=== PATIENT | female | born 1990 | race Caucasian/White ===

== ENCOUNTER 2016-10-22 09:30 | Emergency (ER) | payer OTHER ==
[2016-10-22 10:18] VITALS: BP 148/105
--- NOTE | 2016-10-22 13:27 | UC ---
Abdominal Pain Female HPI - HPI Summary HPI Summary: PATIENT PRESENTS TO WITH REQUEST FOR TEST AND FEELINGS OF TIGHT ABDOMEN, NAUSEA, HEARTBURN AND WEAKNESS FOR 1 WEEK. SHE THINKS SHE MAY BE DESPITE 2 NEGATIVE PREG TESTS AT HOME (PER RN). UA COMPLETED WITH AND NEGATIVE RESULTS. PATIENT MADE AWARE AND BECOMES VERY UPSET. PROVIDER STATED SHE COULD RX MEDICATION FOR GERD SYMPTOMS WELL ANTI- EMETICS. PATIENT STATES SHE HAS ZOFRAN AT HOME AND SHE DOES NOT WISH TO BE STARTED ON ANOTHER MEDICATION. SHE PREFERS AT THIS TIME TO GO TO [facility] FOR FURTHER EVALUATION TO REQUEST A BLOOD TEST FOR SHE THINKS SHE IS , BUT IT MAY NOT BE SHOWING UP IN URINE. SHE STOPPED HER BC 2 MONTHS AGO AND PROVIDER EXPLAINED IT WILL TAKE SOME TIME FOR HER BODY TO REGULATE THROUGH HORMONES, AND THAT LIKELY THE REASON FOR NO PERIOD IN 6 WEEKS IS D/T HER BODY REGULATING THROUGH THE NEW HORMONES. SHE REMAINS STEADFAST THAT SHE WOULD LIKE TO GO TO THE [facility] AND PROVIDER IS OK WITH HER FOR DISCHARGE. - History of Current Complaint Chief Complaint: UCGU Stated Complaint: PERSONAL Time Seen by Provider: 10/22/16 10:15 Hx Obtained From: Patient Hx Last Menstrual Period: 09/03/16 ?: No Onset/Duration: Gradual Onset Timing: Constant Severity Initially: Mild Severity Currently: Mild Pain Intensity: 0 Pain Scale Used: 0-10 Numeric Location: Diffuse Radiates: No Character: Cramping Aggravating Factor(s): Nothing Alleviating Factor(s): Nothing Associated Signs and Symptoms: Positive: Nausea - Risk Factors Ectopic Risk Factor: Negative Ovarian Torsion Risk Factor: Reproductive Age Allergies/Adverse Reactions: Allergies Allergy/AdvReac Type Severity Reaction Status Date / Time Atorvastatin [From Lipitor] Allergy Hives Verified 10/22/16 10:04 Lactose Intolerance (GI) Allergy Vomiting Verified 10/22/16 10:04 Strawberries, tomatoes Allergy Hives Uncoded 10/22/16 10:04 Home Medications: Home Medications Another Blood Pressure Medication - Unknown Name 10/22/16 [History] Metoprolol Tartrate TAB* [Lopressor TAB*] 25 mg PO BID 10/22/16 [History Confirmed 10/22/16] PMH/Surg Hx/FS Hx/Imm Hx Previously Healthy: Yes - DIABETES, HTN Endocrine History Of: Reports: Diabetes - PO med Cardiovascular History Of: Reports: Hypertension Denies: Pacemaker/ICD - Surgical History Surgical History: Yes Surgery Procedure, Year, and Place: ARTHROSCOPY left KNEE 2005, right SHOULDER SURGERY - Family History Known Family History: Positive: Hypertension - Social History Occupation: Employed Full-time Lives: With Family Alcohol Use: None Substance Use Type: None Smoking Status (MU): Never Smoked Tobacco - Immunization History Most Recent Influenza Vaccination: Fall 2014 Review of Systems Constitutional: Fatigue Skin: Negative Eyes: Negative ENT: Negative Respiratory: Negative Cardiovascular: Negative Gastrointestinal: Abdominal Pain, Other - NAUSEA Motor: Negative Neurovascular: Negative Neurological: Negative Psychological: Negative All Other Systems Reviewed And Are Negative: Yes Physical Exam Triage Information Reviewed: Yes Appearance: Well-Appearing, No Pain Distress, Well-Nourished Vital Signs: Initial Vital Signs Temp 97.9 F 10/22/16 09:59 Pulse 65 10/22/16 09:59 Resp 16 10/22/16 09:59 BP 148/105 10/22/16 09:59 Pulse Ox 100 10/22/16 09:59 Vital Signs Reviewed: Yes Eye Exam: Normal Eyes: Positive: Conjunctiva Clear Neck exam: Normal Neck: Positive: Supple, No Lymphadenopathy Respiratory Exam: Normal Respiratory: Positive: Chest non-tender Cardiovascular Exam: Normal Abdominal Exam: Normal Musculoskeletal Exam: Normal Musculoskeletal: Positive: Strength Intact Neurological Exam: Normal Psychological: Positive: Normal Response To Family Skin Exam: Normal Abd Pain Female Course/Dx - Course Course Of Treatment: SEE HPI. PATIENT IS UPSET AND PREFERS TO GO TO [facility] FOR BLOOD TEST. PROVIDER EXPLAINED THEY COULD TREAT HER OTHER SYMPTOMS AND WOULD WANT TO PROVIDE A BETTER PHYSICAL EXAM, BUT PATIENT IS REFUSING AND PREFERS TO LEAVE. SHE DID NOT LEAVE [place], BUT REFUSED CARE. - Differential Dx/Diagnosis Differential Diagnosis: Irritable Bowel Syndrome, Pelvic Inflammatory Disease, , Urinary Tract Infection Provider Diagnoses: NAUSEA, GERD SYMPTOMS Discharge - Discharge Plan Condition: Stable Disposition: HOME Referrals: Non Staff,Doctor [Primary Care Provider] - Additional Instructions: Please follow up today for more tests or further evaluation.
== END 2016-10-22 11:28 | disposition home or self-care (01) ==
LOC: UCCORT 09:30
DX: R11.0 Nausea (principal); K21.9 Gastro-esophageal reflux disease without esophagitis; Z32.02 Encounter for pregnancy test, result negative; E11.9 Type 2 diabetes mellitus without complications; Z79.84 Long term (current) use of oral hypoglycemic drugs; I10 Essential (primary) hypertension
CPT/HCPCS: 81003; 84702; 87086; 99211; G0463

== ENCOUNTER 2017-02-25 13:25 | Emergency (ER) | payer OTHER ==
[2017-02-25 13:47] VITALS: BP 129/84
--- NOTE | 2017-02-25 14:14 | UC ---
Skin Complaint HPI - HPI Summary HPI Summary: Pt states she is allergic to tomatos and strawberries. pt states she ate lasagna 2 night ago. Pt states last evening she developed hives to her face, primarily at hair line. Pt states she applied Benadryl cream which helped. pt states today has itching all over her face although rash is improved. Pt denies difficulty breathing. No intra-oral edema. no difficulty swallowing. Pt's medication reviewed at this visit. - History of Current Complaint Chief Complaint: UCSkin Time Seen by Provider: 02/25/17 13:52 Stated Complaint: SKIN COMPLAINT FACE Hx Obtained From: Patient Hx Last Menstrual Period: 01/30/17 Onset/Duration: Sudden Onset Skin Exposure Onset/Duration: Days Ago Onset Severity: Mild Current Severity: Mild Pain Intensity: 0 Pain Scale Used: 0-10 Numeric - Allergy/Home Medications Allergies/Adverse Reactions: Allergies Allergy/AdvReac Type Severity Reaction Status Date / Time Atorvastatin [From Lipitor] Allergy Hives Verified 02/25/17 13:47 Lactose Intolerance (GI) Allergy Vomiting Verified 02/25/17 13:47 Strawberries, tomatoes Allergy Hives Uncoded 02/25/17 13:47 Home Medications: Home Medications Candesartan Cilexetil-Hydrochl [Candesartan Cilexetil/Hyd] 1 tab PO DAILY [History Confirmed 02/25/17] Review of Systems Constitutional: Negative Skin: Rash Respiratory: Negative All Other Systems Reviewed And Are Negative: Yes PMH/Surg Hx/FS Hx/Imm Hx Previously Healthy: Yes - Surgical History Surgical History: Yes Surgery Procedure, Year, and Place: ARTHROSCOPY left KNEE 2004, right SHOULDER SURGERY - Family History Known Family History: Positive: Hypertension - Social History Occupation: Employed Full-time Lives: With Family Alcohol Use: Rare Substance Use Type: None Smoking Status (MU): Never Smoked Tobacco - Immunization History Most Recent Influenza Vaccination: no Physical Exam Triage Information Reviewed: Yes Appearance: Well-Appearing, No Pain Distress, Well-Nourished Vital Signs: Initial Vital Signs Temp 98.2 F 02/25/17 13:41 Pulse 84 02/25/17 13:41 Resp 14 02/25/17 13:41 BP 129/84 02/25/17 13:41 Pulse Ox 99 02/25/17 13:41 Vital Signs Reviewed: Yes Eye Exam: Normal Eyes: Positive: Conjunctiva Clear ENT Exam: Normal ENT: Positive: Normal ENT inspection, Hearing grossly normal, Pharynx normal, Nasal drainage, TMs normal Dental Exam: Normal Neck exam: Normal Neck: Positive: Supple, Nontender, No Lymphadenopathy Respiratory Exam: Normal Respiratory: Positive: Chest non-tender, Lungs clear, Normal breath sounds, No respiratory distress, No accessory muscle use Cardiovascular Exam: Normal Cardiovascular: Positive: RRR, No Murmur, Pulses Normal Abdominal Exam: Normal Abdomen Description: Positive: Nontender, No Organomegaly Bowel Sounds: Positive: Present Musculoskeletal Exam: Normal Neurological Exam: Normal Neurological: Positive: Alert Psychological Exam: Normal Skin Exam: Normal Skin: Positive: Other - pt with mild diffuse facial edema mild erythema with scattered, blotchy hives. Course/Dx - Course Course Of Treatment: Pt presents to the ED with patchy hives on face with mild edema after eating tomato sauce which cases pt to have reaction. Pt ate yesterday. Pt without intraoral edema or any other symptoms. d/w pt to avoid heat, nsaid. prednisone. benadryl prn. pt comfortable and in agreement with plan - Diagnoses Provider Diagnoses: allergic reaction Discharge - Discharge Plan Condition: Stable Disposition: HOME Prescriptions: predniSONE TAB* [Deltasone TAB*] 50 mg PO DAILY #5 tab Patient Education Materials: General Allergic Reaction (ED) Forms: *Work Release Referrals: Non Staff,Doctor [Primary Care Provider] - Additional Instructions: -Take prednisone once daily directly as prescribed until gone -Okay to take Benadryl every 8 hours. This may cause drowsiness. Do NOT drive, operate machinery or drink alcohol while taking this medication - Avoid getting over heated - hot tubs, hot shower, exercise for 2-3 days - Avoid NSAIDs (Motrin, Advil, Naprosyn, Aleve) for 2-3 days - Okay to apply cool compresses to your wounds - Call your doctor or return with questions or concerns
== END 2017-02-25 14:16 | disposition home or self-care (01) ==
LOC: UCCORT 13:25
DX: L98.9 Disorder of the skin and subcutaneous tissue, unspecified (principal); Z88.8 Allergy status to other drugs, medicaments and biological substances; Z91.011 Allergy to milk products; Z91.018 Allergy to other foods
CPT/HCPCS: 99212; G0463

== ENCOUNTER 2017-10-29 09:18 | Emergency (ER) | payer OTHER ==
[2017-10-29 09:49] VITALS: BP 142/89
--- NOTE | 2017-10-29 10:07 | UC ---
Abdominal Pain Female HPI - HPI Summary HPI Summary: LUQ abdominal pain / right flank pain x 3 days pain is 6/10 , no radiation of the pain pain is worse with movement and improves with rest no fever, no chills, no n/v/d/c , no urinary sx - History of Current Complaint Chief Complaint: UCAbdominalPain Stated Complaint: LEFT SIDE PAIN X4 DAYS Time Seen by Provider: 10/29/17 09:58 Hx Obtained From: Patient Hx Last Menstrual Period: 10/01/17 Onset/Duration: Gradual Onset, Lasting Days - 3, Still Present Timing: Constant Severity Initially: Moderate Severity Currently: Moderate Pain Intensity: 8 Location: Discrete At: LUQ Radiates: No Character: Aching Aggravating Factor(s): Movement Alleviating Factor(s): Other: - rest Associated Signs and Symptoms: Negative: Diaphoresis, Fever, Cough, Chest Pain, Dizzy, Back Pain, Constipation, Blood in Stool, Urinary Symptoms, Decreased Appetite, Vaginal Bleeding, Vaginal Discharge, Nausea, Vomiting, Diarrhea Allergies/Adverse Reactions: Allergies Allergy/AdvReac Type Severity Reaction Status Date / Time atorvastatin Allergy Hives Verified 10/29/17 09:55 lactose Allergy Vomiting Verified 10/29/17 09:55 Strawberries, tomatoes Allergy Hives Uncoded 02/25/17 13:47 Home Medications: Home Medications Ibuprofen TAB* [Motrin TAB* 800 MG] 800 mg PO DAILY PRN 10/29/17 [History Confirmed 10/29/17] Verapamil HCl [Verapamil HCl ER] 100 mg PO BEDTIME 10/29/17 [History Confirmed 10/29/17] PMH/Surg Hx/FS Hx/Imm Hx Cardiovascular History: Hypertension - Surgical History Surgical History: Yes Surgery Procedure, Year, and Place: ARTHROSCOPY left KNEE 2004, right SHOULDER SURGERY - Family History Known Family History: Positive: Hypertension - Social History Alcohol Use: Rare Substance Use Type: None Smoking Status (MU): Never Smoked Tobacco - Immunization History Most Recent Influenza Vaccination: no Review of Systems Constitutional: Negative Skin: Negative Eyes: Negative ENT: Negative Cardiovascular: Palpitations Gastrointestinal: Abdominal Pain Genitourinary: Negative Is Patient Immunocompromised?: No All Other Systems Reviewed And Are Negative: Yes Physical Exam Triage Information Reviewed: Yes Appearance: Well-Appearing, No Pain Distress, Obese Vital Signs: Initial Vital Signs Temp 99.2 F 10/29/17 09:38 Pulse 79 05/29/18 09:38 Resp 18 10/29/17 09:38 BP 142/89 10/29/17 09:38 Pulse Ox 100 10/29/17 09:38 Vital Signs Reviewed: Yes Eyes: Positive: Conjunctiva Clear ENT: Positive: Normal ENT inspection, Hearing grossly normal, Pharynx normal Neck: Positive: Supple, Nontender, No Lymphadenopathy Respiratory: Positive: Chest non-tender, Lungs clear, Normal breath sounds Cardiovascular: Positive: RRR, No Murmur, Pulses Normal Abdomen Description: Positive: Nontender, Soft, Other: - pain with twisting and turning her trunk tenderness left intercostal lower ribs. Negative: CVA Tenderness (R), CVA Tenderness (L), Distended, Guarding Bowel Sounds: Positive: Present Abd Pain Female Course/Dx - Differential Dx/Diagnosis Provider Diagnoses: intercostal muscle strain Discharge - Sign-Out/Discharge Documenting (check all that apply): Discharge/Admit/Transfer - Discharge Plan Condition: Stable Disposition: HOME Prescriptions: Naproxen [Naprosyn 500 mg tab] 500 mg PO BID #20 tablet Referrals: Non Staff,Doctor [Primary Care Provider] - - Billing Disposition and Condition Condition: STABLE Disposition: HOME
== END 2017-10-29 10:27 | disposition home or self-care (01) ==
LOC: UCCORT 09:18
DX: S29.011A Strain of muscle and tendon of front wall of thorax, initial encounter (principal); I10 Essential (primary) hypertension; E73.9 Lactose intolerance, unspecified; Z91.018 Allergy to other foods; Z82.49 Family history of ischemic heart disease and other diseases of the circulatory system; X58.XXXA Exposure to other specified factors, initial encounter; Y92.9 Unspecified place or not applicable
CPT/HCPCS: 81003; 99212; G0463

== ENCOUNTER 2018-03-03 19:39 | Emergency (ER) | payer OTHER ==
[2018-03-03] MEDS ORDERED: Benzonatate CAP* 100 MG PO ONE (21:42)
--- NOTE | 2018-03-03 21:48 | UC ---
Respiratory Complaint HPI - HPI Summary HPI Summary: 28 year old female presents with 4 day history of a productive cough for green sputum. Denies fever, chills, nasal congestion, runny nose, ear pain or drainage, sore throat, chest pain, shortness of breath, abdominal pain, nausea, or vomiting. - History of Current Complaint Chief Complaint: UCRespiratory Stated Complaint: COUGH Time Seen by Provider: 03/03/18 20:53 Hx Obtained From: Patient Hx Last Menstrual Period: 02/04/18 Onset/Duration: Gradual Onset, Lasting Days - 4 Pain Intensity: 0 Character: Cough: Productive Aggravating Factors: Nothing Alleviating Factors: Nothing Associated Signs And Symptoms: Negative: Dyspnea, Fever, Chills, Pleuritic Chest Pain, Wheezing, Hemoptysis, URI, Nasal Congestion - Allergies/Home Medications Allergies/Adverse Reactions: Allergies Allergy/AdvReac Type Severity Reaction Status Date / Time atorvastatin Allergy Hives Verified 03/03/18 21:06 lactose Allergy Vomiting Verified 03/03/18 21:06 Strawberries, tomatoes Allergy Hives Uncoded 03/03/18 21:06 Home Medications: Home Medications Dm/Acetaminophen/Doxylamine [Night Time Multi-Symptom] 1 cap PO PRN 03/03/18 [ History] Dm/Pseudoephed/Acetaminophen [Day-Time Multi-Symptom Co] 1 cap PO PRN 03/03/18 [ History] PMH/Surg Hx/FS Hx/Imm Hx Previously Healthy: Yes Cardiovascular History: Hypertension - Surgical History Surgical History: Yes Surgery Procedure, Year, and Place: ARTHROSCOPY left KNEE 2004, right SHOULDER SURGERY - Family History Known Family History: Positive: Hypertension - Social History Occupation: Employed Full-time Lives: With Family Alcohol Use: Rare Substance Use Type: None Smoking Status (MU): Never Smoked Tobacco - Immunization History Most Recent Influenza Vaccination: no Review of Systems Constitutional: Negative Skin: Negative Eyes: Negative ENT: Negative Respiratory: Cough Cardiovascular: Negative Gastrointestinal: Negative Is Patient Immunocompromised?: No All Other Systems Reviewed And Are Negative: Yes Physical Exam Triage Information Reviewed: Yes Appearance: Well-Appearing, No Pain Distress, Well-Nourished Vital Signs: Initial Vital Signs Temp 98.3 F 03/03/18 21:09 Pulse 86 03/03/18 21:09 Resp 18 03/03/18 21:09 BP 151/105 03/03/18 21:09 Pulse Ox 98 03/03/18 21:09 Vital Signs Reviewed: Yes Eyes: Positive: Conjunctiva Clear. Negative: Discharge ENT: Positive: Hearing grossly normal, Pharyngeal erythema - Mild, TMs normal, Uvula midline. Negative: Nasal congestion, Nasal drainage, Tonsillar swelling, Tonsillar exudate, Sinus tenderness Neck: Positive: Supple, Nontender, No Lymphadenopathy Respiratory: Positive: Lungs clear, Normal breath sounds, No respiratory distress Cardiovascular: Positive: RRR, No Murmur Neurological: Positive: Alert Skin Exam: Normal Diagnostic Evaluation - Laboratory O2 Sat by Pulse Oximetry: 98 Respiratory Course/Dx - Course Course Of Treatment: 28 year old female with 4 day history of productive cough. Exam unremarkable except for her elevated blood pressure. Has history of HTN but not taking her medication due to side effects. Her cough is likely an acute viral bronchitis. Recommend symptomatic treatment using Tessalon Perles PRN. Avoidance of OTC cold medicines d/t HTN. Restart her verapamil and follow up with PCP. Verbalizes understanding and agrees with POC. - Differential Dx/Diagnosis Differential Diagnosis/HQI/PQRI: Bronchitis, Lower Resp Infection Provider Diagnoses: acute bronchitis Discharge - Sign-Out/Discharge Documenting (check all that apply): Patient Departure All imaging exams completed and their final reports reviewed: No Studies - Discharge Plan Condition: Stable Disposition: HOME Prescriptions: Benzonatate CAP* [Tessalon 100 MG CAP*] 100 mg PO TID PRN #30 cap PRN Reason: Cough Patient Education Materials: Acute Bronchitis (ED) Forms: *Work Release Referrals: Non Staff,Doctor [Primary Care Provider] - Additional Instructions: Your symptoms are suggestive of an acute bronchitis. Bronchitis is typically caused by a viral infection. Viral infections do not respond to antibiotics and typically run their course over about 7-10 days although the cough with bronchitis can linger for a few weeks. Be sure to drink plenty of fluids to stay well hydrated. You may use [id number]-hal-[id number] Mucinex to help thin and removal secretions. Use Tessalon Perles 1 cap every 8 hours as needed for cough. Your blood pressure was elevated in the clinic tonight. I would recommend restarting your blood pressure medication and following up with your primary care provider to discuss alternatives if you're not tolerating your current medication well. I would also recommend avoiding [id number] cold medicines as these can elevate her blood pressure as well. Seek immediate medical attention if you develop fever greater than 100.5, have chest pain, worsening shortness of breath, or any worsening of symptoms. - Billing Disposition and Condition Condition: STABLE Disposition: Home
[2018-03-03 21:59] VITALS: BP 136/100
== END 2018-03-03 21:53 | disposition home or self-care (01) ==
LOC: UCCORT 19:39
DX: J20.9 Acute bronchitis, unspecified (principal); Z88.8 Allergy status to other drugs, medicaments and biological substances; I10 Essential (primary) hypertension
CPT/HCPCS: 99212; A9270-GY; G0463

== ENCOUNTER 2018-08-22 10:21 | Emergency (ER) | payer OTHER ==
--- OUTSIDE RECORDS SUMMARY | 2018-08-22 10:51 | XMS REPORT | Continuity of Care Document ---
:1990 External Reference #:[id number] Author Name Janet Messer Care Team Providers Name Role Phone Jevon Schulte MD Primary Care Physician Unavailable Payers Date Identification Numbers Payment Provider Subscriber Policy Number: [id number] [facility] Raman Carlisle PayID: [id number] [address] [place] [address] Advance Directives Description No Information Available Problems Date Description Provider Status Onset: 03/13/2018 Shoulder joint unstable Arik Downs MD Active Onset: 03/13/2018 Injury of shoulder region Arik Downs MD Active Onset: 03/13/2018 Strain of muscle(s) and tendon(s) of the Arik Downs MD Active rotator cuff of right shoulder, subsequent encounter Family History Description No Information Available Social History Type Date Description Comments Sex Unknown Lives With Spouse Occupation Currently Working ETOH Use Rarely consumes alcohol Tobacco Use Start: Unknown Patient has never smoked Smoking Status Reviewed: 08/08/18 Patient has never smoked Exercise Type/Frequency Exercises sporadically Allergies, Adverse Reactions, Alerts Date Description Reaction Status Severity Comments 03/13/2018 Lipitor Active hives Medications Medication Date Status Form Strength Qnty SIG Indications Ordering Provider Verapamil HCL Active Tablets 80mg 1 tab by Unknown 000 mouth twice a day Keflex Hx Capsules 500mg 12caps take 1 Arik 018 - tab by MD Himanshu mouth 018 four times a day x 3 days Percocet Hx Tablets 5-325mg 10tabs 1 tabs by Arik 018 - mouth MD Himanshu every 12 018 hours as needed pain Immunizations Description No Information Available Vital Signs Date Vital Result Comment 08/08/2018 8:07am Height 67 inches 5'7" Weight 247.00 lb Heart Rate 59 /min BP Systolic 172 mmHg BP Diastolic 92 mmHg Body Temperature 98.2 F Pain Level 8 BMI (Body Mass Index) 38.7 kg/m2 07/10/2018 1:41pm Height 67 inches 5'7" Weight 247.00 lb Heart Rate 72 /min BP Systolic Sitting 134 mmHg BP Diastolic Sitting 84 mmHg Respiratory Rate 16 /min Pain Level 8 BMI (Body Mass Index) 38.7 kg/m2 06/05/2018 1:18pm Height 67 inches 5'7" Weight 247.00 lb BP Systolic 118 mmHg BP Diastolic 70 mmHg Respiratory Rate 18 /min Pain Level 0 BMI (Body Mass Index) 38.7 kg/m2 04/29/2018 8:05am Height 67 inches 5'7" Weight 247.00 lb BP Systolic 126 mmHg BP Diastolic 72 mmHg Respiratory Rate 18 /min Body Temperature 98.3 F Pain Level 4 BMI (Body Mass Index) 38.7 kg/m2 04/10/2018 1:10pm Height 67 inches 5'7" Weight 247.50 lb Heart Rate 84 /min BP Systolic 130 mmHg BP Diastolic 82 mmHg Respiratory Rate 18 /min Pain Level 8 BMI (Body Mass Index) 38.8 kg/m2 03/13/2018 2:23pm Height 67 inches 5'7" Weight 246.00 lb Heart Rate 72 /min BP Systolic 140 mmHg BP Diastolic 90 mmHg Body Temperature 98.4 F Pain Level 8 BMI (Body Mass Index) 38.5 kg/m2 Results Test Date Facility Test Result H/L Range Note Laboratory test 04/16/2018 [facility] Point of Care 150 mg/dL High 70-[address] [place] [address] [phone] 1 Computer Systems Software Engineer: [id number] Procedures Date Code Description Status 04/16/2018 28247 Arthroscopy Shoulder,W/Rotator Cuff Repair Completed 04/16/2018 08441 Arthroscopy Shoulder,W/Rotator Cuff Repair Completed 04/16/2018 08685 Arthroscopy,Shoulder Decompression Of Subacromial Space Completed W/Acromio 04/16/2018 76622 Arthroscopy,Shoulder Decompression Of Subacromial Space Completed W/Acromio 04/16/2018 38002 Tenodesis Biceps Long Tendon Completed 04/16/2018 07897 Tenodesis Biceps Long Tendon Completed Encounters Type Date Location Provider Dx Diagnosis Office Visit 03/13/2018 [facility] Arik Downs MD M25.311 Other [facility] instability, right shoulder S46.011D Strain of musc/tend the rotator cuff of right shoulder, subs S46.101A Unsp injury of musc/fasc/tend long hd bicep, right arm, init Plan of Treatment Future Appointment(s):09/23/2018 1:15 pm - Arik Downs MD at [facility]
[2018-08-22 11:17] VITALS: BP 157/104
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
== END 2018-08-22 13:11 | disposition home or self-care (01) ==
LOC: UCCORT 10:21
DX: S40.011A Contusion of right shoulder, initial encounter (principal); E11.9 Type 2 diabetes mellitus without complications; I10 Essential (primary) hypertension; Z91.018 Allergy to other foods; Z91.011 Allergy to milk products; Z88.8 Allergy status to other drugs, medicaments and biological substances; V89.2XXA Person injured in unspecified motor-vehicle accident, traffic, initial encounter; Y92.9 Unspecified place or not applicable
CPT/HCPCS: 99211; G0463

== ENCOUNTER 2018-12-10 09:38 | Emergency (ER) | payer OTHER ==
--- OUTSIDE RECORDS SUMMARY | 2018-12-10 09:53 | XMS REPORT | Continuity of Care Document ---
:1990 External Reference #:[id number] Author Name Janet Messer Care Team Providers Name Role Phone Jevon Schulte MD Primary Care Physician Unavailable Payers Date Identification Numbers Payment Provider Subscriber Policy Number: [id number] [facility] Raman [place] PayID: [id number] [facility] [id number] [place] [address] Effective: 2018 Policy Number: [id number] [employer] Raman [place] Onset: 2018 Group Number: [id number] JOSE PayID: [id number] [place] [address] Problems Active Problems Provider Date Shoulder joint unstable Arik Downs MD Onset: 03/13/2018 Injury of shoulder region Arik Downs MD Onset: 03/13/2018 Strain of muscle(s) and tendon(s) of the rotator Arik Downs MD Onset: 04/2018 cuff of right shoulder, subsequent encounter Social History Type Date Description Comments Sex Unknown Lives With Spouse Occupation Currently Working ETOH Use Rarely consumes alcohol Tobacco Use Start: Unknown Patient has never smoked Smoking Status Reviewed: 11/25/18 Patient has never smoked Exercise Type/Frequency Exercises sporadically Allergies, Adverse Reactions, Alerts Active Allergies Reaction Severity Comments Date Lipitor hives 03/13/2018 Medications Active Medications SIG Qnty Indications Ordering Provider Date Verapamil HCL 1 tab by mouth Unknown 80mg Tablets twice a day History Medications Medrol take as directed 21units S46.011D Arik Downs, 08/26/2018 - 4mg TBPK by packaging 09/22/2018 Keflex take 1 tab by 12caps Arik Downs, 04/16/2018 - 500mg mouth four times a MD 04/19/2018 Capsules day x 3 days Percocet 1 tabs by mouth 10tabs Arik Downs, 04/16/2018 - every 12 hours as 04/26/2018 5-325mg Tablets needed pain Medications Administered in Office Medication SIG Qnty Indications Ordering Provider Date Triamcinolone (Kenalog) Arik Downs MD 08/08/2018 Injection Vital Signs Date Vital Result Comment 11/25/2018 12:57pm Height 67 inches 5'7" Weight 248.00 lb BP Systolic 132 mmHg BP Diastolic 86 mmHg Respiratory Rate 18 /min Pain Level 2 BMI (Body Mass Index) 38.8 kg/m2 09/23/2018 1:09pm Height 67 inches 5'7" Weight 248.00 lb Heart Rate 97 /min BP Systolic 128 mmHg BP Diastolic 88 mmHg Body Temperature 98.4 F Pain Level 3 BMI (Body Mass Index) 38.8 kg/m2 08/26/2018 12:57pm Height 67 inches 5'7" Weight 247.00 lb BP Systolic 128 mmHg BP Diastolic 84 mmHg Respiratory Rate 18 /min Pain Level 8 BMI (Body Mass Index) 38.7 kg/m2 08/08/2018 8:07am Height 67 inches 5'7" Weight [...] Result H/L Range Note Laboratory test 04/16/2018 [facility] Point of Care 150 mg/dL High 70-[address] [place] [address] [phone] 1 [place] Can Worker: [id number] Procedures Date Code Description Status 08/08/2018 42357 Inject/Drain Joint/Bursa Major W/O US Completed 04/16/2018 41982 Arthroscopy Shoulder,W/Rotator Cuff Repair Completed 04/16/2018 78668 Arthroscopy Shoulder,W/Rotator Cuff Repair Completed 04/16/2018 17826 Arthroscopy,Shoulder Decompression Of Subacromial Space Completed W/Acromio 04/16/2018 84790 Arthroscopy,Shoulder Decompression Of Subacromial Space Completed W/Acromio 04/16/2018 96401 Tenodesis Biceps Long Tendon Completed 04/16/2018 89657 Tenodesis Biceps Long Tendon Completed Encounters Type Date Location Provider Dx Diagnosis Office Visit 09/23/2018 Orthopedic Arik Downs MD S46.101D Unsp injury of 1:15p [facility] musc/fasc/tend long hd bicep, right arm, subs M25.311 Other instability, right shoulder S46.011D Strain of martina/tend the rotator cuff of right shoulder, subs Office Visit 08/26/2018 1:00p Orthopedic Arik Downs S46.011A Strain of [facility] MD mack/[facility] rotator cuff of right shoulder, init S46.101D Unsp injury of martina/fasc/tend long hd bicep, right arm, subs M25.311 Other instability, right shoulder S46.011D Strain of martina/tend the rotator cuff of right shoulder, subs Office Visit 08/08/2018 Gaurav Downs, S46.101D Unsp injury of 8:15a [facility] mack/fasc/tend long [facility] hd bicep, right arm, subs M25.311 Other instability, right shoulder S46.011D Strain of musc/tend the rotator cuff of right shoulder, subs Office Visit 03/13/2018 2:00p Orthopedic Arik Downs, M25.311 Other instability, [facility] right shoulder [facility] S46.011D Strain of musc/tend the rotator cuff of right shoulder, subs S46.101A Unsp injury of musc/fasc/tend long hd bicep, right arm, init Plan of Treatment 11/25/2018 - Arik Downs, MDS46.101D Unspecified injury of muscle, fascia and tendon of long headM25.311 Other instability, right lbssqjtkH04.011D Strain of muscle(s) and tendon(s) of the rotator cuff of rigFollow up:Follow up: As needed
[2018-12-10 10:01] VITALS: BP 152/111
[2018-12-10] MEDS ORDERED: Albuterol 2.5 MG/3 ML NEB.SOL* (0.083%) INH ONE (10:17)
--- NOTE | 2018-12-10 10:17 | UC ---
UC General HPI - HPI Summary HPI Summary: pt is c/o a 3-4 day hx head congestion, ear pressure, sore throat and cough. no fever, cp or asthma. hx htn, no meds yet today. taking oct cold medications with no relief. - History of Current Complaint Chief Complaint: UCGeneralIllness Stated Complaint: COUGH,CONGESTION,BILAT EAR CONCERN Time Seen by Provider: 12/10/18 10:10 Hx Obtained From: Patient Hx Last Menstrual Period: October Onset/Duration: Gradual Onset Timing: Constant Pain Intensity: 7 Associated Signs & Symptoms: Positive: Headache - with cough. Negative: Chest Pain, SOB - Allergy/Home Medications Allergies/Adverse Reactions: Allergies Allergy/AdvReac Type Severity Reaction Status Date / Time atorvastatin Allergy Hives Verified 12/10/18 10:02 lactose Allergy Vomiting Verified 12/10/18 10:02 Strawberries, tomatoes Allergy Hives Uncoded 12/10/18 10:02 PMH/Surg Hx/FS Hx/Imm Hx Cardiovascular History: Hypertension - Surgical History Surgical History: Yes Surgery Procedure, Year, and Place: ARTHROSCOPY left KNEE 2004, right SHOULDER SURGERY x2- last one 04/2018 - Family History Known Family History: Positive: Hypertension - Social History Alcohol Use: Rare Substance Use Type: Marijuana Substance Use Comment - Amount & Last Used: occasionally Smoking Status (MU): Never Smoked Tobacco Have You Smoked in the Last Year: No - Immunization History Most Recent Influenza Vaccination: no Review of Systems All Other Systems Reviewed And Are Negative: Yes Constitutional: Negative: Fever, Chills ENT: Positive: Sore Throat, Ear Ache, Sinus Congestion Respiratory: Positive: Cough. Negative: Shortness Of Breath Cardiovascular: Negative: Palpitations, Chest Pain Neurological: Positive: Headache - with cough Physical Exam Triage Information Reviewed: Yes Appearance: Well-Appearing Vital Signs: Initial Vital Signs Temp 98.3 F 12/10/18 09:54 Pulse 85 12/10/18 09:54 Resp 18 12/10/18 09:54 BP 152/111 12/10/18 09:54 Pulse Ox 98 12/10/18 09:54 Vital Signs Reviewed: Yes Eyes: Positive: Conjunctiva Clear ENT: Positive: Pharyngeal erythema - mild, Nasal congestion, TMs normal. Negative: Nasal drainage Neck: Positive: Supple, Nontender, No Lymphadenopathy Respiratory: Positive: Lungs clear, Decreased breath sounds - slight, Other: - frequent npc.. Negative: Crackles, Rhonchi, Wheezing Cardiovascular: Positive: RRR, No Murmur Musculoskeletal: Positive: ROM Intact Neurological: Positive: Alert Psychological: Positive: Age Appropriate Behavior Skin Exam: Normal Diagnostics - Laboratory Lab Results: rapid strep=negative Re-Evaluation - Re-Evaluation First Eval Change: Improved - better aeration and cough improved Course/Dx - Diagnoses Provider Diagnosis: URI (upper respiratory infection), Bronchitis Discharge - Sign-Out/Discharge Documenting (check all that apply): Patient Departure All imaging exams completed and their final reports reviewed: No Studies - Discharge Plan Condition: Stable Disposition: HOME Prescriptions: Albuterol HFA INHALER* [Ventolin HFA Inhaler*] 2 puff INH Q6H #1 mdi prednisoLONE [Prednisolone] 30 mg PO DAILY 5 Days #50 ml Patient Education Materials: Upper Respiratory Infection (DC), Acute Bronchitis (ED) Forms: *Work Release Referrals: Eris ROSARIO,Jevon Navarro [Primary Care Provider] - 7 Days - Billing Disposition and Condition Condition: STABLE Disposition: Home
== END 2018-12-10 10:55 | disposition home or self-care (01) ==
LOC: UCCORT 09:38
DX: J06.9 Acute upper respiratory infection, unspecified (principal); J40 Bronchitis, not specified as acute or chronic; I10 Essential (primary) hypertension; Z91.011 Allergy to milk products; Z88.8 Allergy status to other drugs, medicaments and biological substances; Z91.018 Allergy to other foods
CPT/HCPCS: 87651; 99212; G0463